=== PATIENT | female | born 1945 | race Caucasian/White ===

== ENCOUNTER → 2020-02-23 15:30 | Outpatient (BNVA) | payer MEDICARE, SELFPAY | PROVIDERS: Family Provider Family Medicine; PCP Family Medicine; Visit Provider Obstetrics & Gynecology | DX: N95.0 Postmenopausal bleeding (principal) | CPT/HCPCS: 80053 ==

== ENCOUNTER → 2020-03-02 08:52 | Outpatient (BNVA) | payer MEDICARE, SELFPAY | PROVIDERS: Family Provider Family Medicine; PCP Family Medicine; Visit Provider Obstetrics & Gynecology | DX: N95.0 Postmenopausal bleeding (principal) | CPT/HCPCS: 76830 ==

== ENCOUNTER → 2020-03-23 13:24 | Outpatient (BNVA) | payer MEDICARE, SELFPAY | PROVIDERS: PCP Family Medicine; Visit Provider Obstetrics & Gynecology | DX: Z11.59 Encounter for screening for other viral diseases (principal) | CPT/HCPCS: 87635 ==

== ENCOUNTER 2020-03-27 05:37 | Day surgery (SDC) | payer MEDICARE, SELFPAY ==
[2020-03-22 11:54] VITALS: BMI 23.8
--- NOTE | 2020-03-22 12:19 | ANES.PREANE2 ---
Pre-Anesthetic Assessment Pre-Anesthetic Assessment: Height/Weight: Height 1.7 m Weight 68.946 kg Preop Diagnosis: postmenopausal bleeding Proposed Procedure: Operation Date: 03/27/20 09:15 Proposed Procedures p Hysteroscopy 76294 N95.0(Not Applicable) - Jason López MD s Dilation And Curettage (D&C) w/ Ultrasound Guidance [id number](Not Applicable) - Jason López MD Familial anesthetic complications: None Social: Social History: No alcohol and No tobacco Exam: Pre-Anes Outpt Exam: alert, oriented x 3, clear to auscultation bilaterally and regular rate & rhythm Airway: Cervical ROM: WNL MP: 4 Dentition: Other (bridges) CV/HEM: CV/HEM: HTN Anesthetic Plan: ASA status: 1 Anesthesia: MAC Risk of > 500 ml blood loss (7ml/kg in children): No PFSH Anesthesia PFSH: Medical History (Updated 03/22/20 @ 11:53 by Eusebia Barbosa) Hypertension Surgical History (Updated 03/22/20 @ 11:53 by Eusebia Barbosa) History of tubal ligation (~1984) Family History Mother Lung disease COPD - Smoker Social History (Updated 02/27/20 @ 08:02 by Jason López MD) Smoking and tobacco status: never smoked Alcohol intake: never Other details last substance use: Denies drug use. Data Anesthesia Cardiac Studies: No Data to Display
--- NOTE | 2020-03-27 | US_ITS ---
NOTE: Report was unsigned for reason: Order was edited. Original Signature date and time was: 03/27/2020 0846 WS: [id number] Limited pelvic ultrasound. 3 images are submitted of the transabdominal pelvis 3 images were performed during surgery. [facility] US/US pelvic limited [id number] IMPRESSION: Ultrasound guidance for Dr. López during surgery.
[2020-03-27] MEDS: sodium chloride 0.9% 1,000 ML 30 ML IV (06:35)
--- NOTE | 2020-03-27 06:39 | P.HPUD_ITS ---
Surgery/Procedure H&P Update DATE OF PROCEDURE: March 27, 2020 DATE H&P PERFORMED: 03/23/20 H&P UPDATE INFORMATION: I have reviewed H&P completed within last 30 days, I have examined patient prior to procedure, No changes to prior documentation and H&P is in [facility] EMR on date indicated PREOP DIAGNOSIS: Postmenopausal bleeding, Cervical stenosis PLANNED PROCEDURE: Operation Date: 03/27/20 07:00 Proposed Procedures p Hysteroscopy 88312 N95.0(Not Applicable) - Jason López MD s Dilation And Curettage (D&C) w/ Ultrasound Guidance [id number](Not Applicable) - Jason López MD
--- NOTE | 2020-03-27 06:39 | W.PM.OPSUD ---
Surgery/Procedure H&P Update DATE OF PROCEDURE: March 27, 2020 DATE H&P PERFORMED: 03/23/20 H&P UPDATE INFORMATION: I have reviewed H&P completed within last 30 days, I have examined patient prior to procedure, No changes to prior documentation and [place] is [place] [facility] [place] date indicated PREOP DIAGNOSIS: Postmenopausal bleeding, Cervical stenosis PLANNED PROCEDURE: Operation Date: 03/27/20 07:00 Proposed Procedures p Hysteroscopy 16888 N95.0(Not Applicable) - Jason López MD s Dilation And Curettage (D&C) w/ Ultrasound Guidance [id number](Not Applicable) - Jason López MD
--- NOTE | 2020-03-27 07:46 | P.OP_ITS ---
Operative Report Date of procedure: March 27, 2020 Pre-op Diagnosis: Postmenopausal bleeding, Cervical stenosis Post-op Diagnosis: Postmenopausal bleeding, Cervical stenosis Procedure Done: Hysteroscopy with D&C, Ultrasound guidance, Paracervical block Specimens removed/disposition: Endometrial curettings Surgeon: Jason López [employer] Teacher: None Anesthesia: General and Other (Paracervical block with 2% lidocaine with epinephrine) Estimated blood loss (mL): 2 IV fluids (mL): 800 Complications: None Findings: Pale atrophic appearing endometrial lining with no masses or polyps noted. Both tubal ostia identified. Minimal uterine prolapse. Brief History: Patient is a 74-year-old white female 5, para 5 who is postmenopausal. She presented to the office on 02/23/2020 reporting a brown-colored vaginal discharge. No odor was associated with it. Mainly noticed it on her pad. Denied bright red bleeding. On exam, no cause for the bleeding identified vaginally. She did have a stenotic cervical os noted. Ultrasound showed a small uterus measuring 5.0 x 3.2 cm with a fluid-filled endometrial cavity noted. No polyps or masses were noted on ultrasound. Because of the potential postmenopausal bleeding and the findings on ultrasound, further evaluation was recommended. As result of the stenosis, recommended this be performed under anesthesia under ultrasound guidance. She is presenting for that at this time. Procedure: The patient was taken to the operating room where general anesthesia was obtained. She was prepped and draped in the usual sterile fashion in the dorsal supine position with legs in Virgilio style stirrups. Sequential compression boots had been placed prior to starting the case. Exam under anesthesia was performed and the patient was noted to have minimal uterine prolapse. A weighted speculum was placed in the vagina and the cervix was grasped with a single-tooth tenaculum. A paracervical block was performed with a total of 10 mL of 2% lidocaine with epinephrine used. Transabdominal pelvic ultrasound was performed by field service technician. Uterus was identified. Under ultrasound guidance confirming dilators were within the endometrial cavity, starting with a 1 mm dilator, the cervix was slowly dilated until hysteroscope was able to be passed. Crystalloid solution was used as a distention media. The endometrial cavity was inspected. The lining was pale, atrophic in appearance with no masses or polyps noted. Both tubal ostia were visualized. Sharp curettage was performed with minimal tissue obtained. The tenaculum was removed and there was bleeding from the tenaculum site. Direct pressure was held with ring forceps for approximately 3 minutes. The site continued to bleed. As a result the site was oversewn with 0 chromic suture in a [id number] fashion. This brought it to hemostasis. Patient tolerated the procedure well. Sponge and needle counts were correct. DRAINS: None POSTOPERATIVE STATUS: The patient was transferred to the recovery room in satisfactory condition DISPOSITION: Discharge to home when criteria was met. FOLLOWUP APPOINTMENT: Followup appointment had been scheduled on 04/11/2020 in my office. MEDICATIONS: May resume usual home medications.
[2020-03-27 07:49] VITALS: BP 150/81; PULSE 124; RESP 18; TEMP 36.2; O2SAT 90
[2020-03-27 07:50] VITALS: BP 163/83; PULSE 127; RESP 17; O2SAT 92
[2020-03-27 07:55] VITALS: BP 146/82; PULSE 118; RESP 18; O2SAT 99
[2020-03-27 08:00] VITALS: BP 150/81; PULSE 115; RESP 24; O2SAT 94
--- NOTE | 2020-03-27 08:01 | SUR.PHASEI ---
pt awake alert denies pain and nausea, vss HR still elevated at 115, pt on ra sats 94%
[2020-03-27 08:12] VITALS: BP 145/84; PULSE 100; RESP 16; TEMP 36.6; O2SAT 94
[2020-03-27 08:28] VITALS: BP 136/87; PULSE 102; RESP 16; TEMP 36.6; O2SAT 97
[2020-03-27] MEDS: HYDROcodone-acetaminophen 10-325 mg Tablet 1 TAB PO (08:34)
--- NOTE | 2020-03-27 09:15 | ANE.PACU2 ---
Inpatient post-anesthesia follow up: Airway intact: Yes Vital signs: Temperature 97.8 F Pulse Rate 102 Respiratory Rate 16 Blood Pressure 136/87 Pulse Oximetry 97 Oxygen Delivery Me thod Room Air Oxygen Flow Rate 8 Fraction of Inspir ed Oxygen Hydration adequate: Yes Nausea and vomiting: No Pain level: 2 Mental status: Baseline
== END 2020-03-27 09:15 | disposition home or self-care (01) ==
PROVIDERS: PCP Family Medicine; Visit Provider Obstetrics & Gynecology
PROC: 0UJD8ZZ Inspection of Uterus and Cervix, Via Natural or Artificial Opening Endoscopic (ICD-10-PCS; CPT 58555; principal; 2020-03-27 07:00)
PROC: (CPT 58120; 2020-03-27 07:00)
DX: N95.0 Postmenopausal bleeding (principal); I10 Essential (primary) hypertension; F41.9 Anxiety disorder, unspecified; M19.90 Unspecified osteoarthritis, unspecified site
CPT/HCPCS: 58558; 12345; 76857; 76998; 88305; J1100; J2405; J2704; J3010; J3490; J7030

== ENCOUNTER → 2023-05-11 09:38 | Outpatient (BNVA) | payer MEDICARE, SELFPAY | PROVIDERS: PCP Family Medicine; Visit Provider Nurse Practitioner Family | DX: R50.9 Fever, unspecified (principal) | CPT/HCPCS: 87400; 87426 ==

== ENCOUNTER 2025-03-21 10:26 | Outpatient (CLI) | payer MEDICARE, SELFPAY ==
[2025-03-21 11:47] LABS: Hematocrit 42.0 % (36-47); Hemoglobin 13.60 g/dL (11.27-16.99); Mean Corpuscular HGB Conc 32.4 g/dL (30-55); Mean Corpuscular Hemoglobin 29.1 pg (27-33); Mean Corpuscular Volume 89.9 fl (85-98); Nucleated Red Blood Cells % 0 %; Platelet Count 252 10^3/cmm (157-399); Red Blood Count 4.67 10^6/uL (3.85-5.65); White Blood Count 5.25 10^3/uL (3.29-11.43)
[2025-03-21 12:42] LABS: Alanine Aminotransferase 10 U/L (0-33); Albumin Level 4.1 g/dL (3.5-5.2); Alkaline Phosphatase 67 U/L (35-105); Anion Gap 13.4 (5-19); Aspartate Amino Transferase 16 U/L (0-32); Blood Urea Nitrogen 11 mg/dL (8-23); Calcium 9.1 mg/dL (8.5-10.5); Carbon Dioxide 29 mmol/L (22-29); Chloride 102 mmol/L (98-107); Cholesterol 218 mg/dL (0-200); Globulin 2.3 g/dL (1.3-4.6); Glucose 96 mg/dL (65-115); HDL Cholesterol 83 mg/dL (60-100); Osmolality Calculated 289 mOsm/kg (285-295); Potassium 4.4 mmol/L (3.5-5.1); Sodium 140 mmol/L (136-145); Thyroid Stimulating Hormone 0.74 uIU/mL (0.27-4.20); Total Protein 6.4 g/dL (6.6-8.7); Triglycerides 95 mg/dL (0-150); VLDL Cholestrol Calculation 19 mg/dL (0-30)
[2025-03-21 12:46] LABS: Vitamin B12 > 2000 pg/mL (232-1245)
== END 2025-03-21 10:27 | disposition home or self-care (01) ==
PROVIDERS: PCP Family Medicine; Visit Provider Family Medicine
DX: E03.9 Hypothyroidism, unspecified (principal); I10 Essential (primary) hypertension; M19.90 Unspecified osteoarthritis, unspecified site; F41.9 Anxiety disorder, unspecified; M81.0 Age-related osteoporosis without current pathological fracture
CPT/HCPCS: 36415; 80053; 80061; 82306; 82607; 84443; 85025

== ENCOUNTER → 2025-03-23 10:20 | Outpatient (BNVA) | payer MEDICARE, SELFPAY | PROVIDERS: PCP Family Medicine; Visit Provider Family Medicine | DX: R35.0 Frequency of micturition (principal) | CPT/HCPCS: 81000 ==